=== PATIENT | female | born 1980 | race Caucasian/White ===

== ENCOUNTER 2016-10-20 09:23 | Observation (INO) | payer OTHER ==
[~2016-10-20] VITALS: Ht 170.2 cm; Wt 60.8 kg
[2016-10-20 11:47] LABS: HEMOGLOBIN 15.1 gm/dl (12.3-15.3); RED BLOOD COUNT 4.53 M/UL (4.00-5.10); WHITE BLOOD COUNT 10.2 K/UL (4.5-11.0)
[2016-10-20 12:17] LABS: BUN/CREATININE RATIO 29 (0-10)
[2016-10-20] MEDS ORDERED: ROBAXIN 750 MG750 MG PO (19:38)
[2016-10-20] MEDS ORDERED: ALLER-FEX180 MG PO (19:40)
[2016-10-20] MEDS ORDERED: BUSPAR 10MG10 MG PO (19:41)
[2016-10-20] MEDS ORDERED: LOSARTAN-HCTZ1 EAC1 PO (19:48)
[2016-10-21 07:30] LABS: HEMOGLOBIN 14.1 gm/dl (12.3-15.3); RED BLOOD COUNT 4.31 M/UL (4.00-5.10)
[2016-10-21 07:35] LABS: WHITE BLOOD COUNT 6.3 K/UL (4.5-11.0)
[2016-10-21 07:52] LABS: BUN/CREATININE RATIO 30 (0-10)
[2016-10-21] MEDS ORDERED: XANAX0.25 MG PO (11:50)
== END 2016-10-21 10:57 | disposition home or self-care (01) ==
LOC: ER1 09:23 → MED SURG 4 16:00 → ZEROF 16:00 → MED SURG 4 16:00
PROVIDERS: Emergency Medicine; ADMIT Internal Medicine
DX: I47.9 Paroxysmal tachycardia, unspecified (principal); I10 Essential (primary) hypertension; R42 Dizziness and giddiness; F41.9 Anxiety disorder, unspecified; Z86.79 Personal history of other diseases of the circulatory system; Z79.899 Other long term (current) drug therapy; Z98.84 Bariatric surgery status; Z88.8 Allergy status to other drugs, medicaments and biological substances
CPT/HCPCS: ECHO; 36415; 70450; 71010; 80048; 80053; 80307; 81001; 82550; 82553; 83605; 83874; 83880; 84439; 84443; 84484; 84703; 85025; 85379; 86140; 87040; 93005; 93270; 93306; 94664; 96360; 96361; 99285; G0378; J1650; J7030

== ENCOUNTER 2016-10-21 21:21 | Emergency (ER) | payer OTHER ==
[~2016-10-21 21:21] MED LIST: ALLER-FEX180 MG PO; BUSPAR 10MG10 MG PO; LOSARTAN-HCTZ1 EAC1 PO; ROBAXIN 750 MG750 MG PO; XANAX0.25 MG PO
== END 2016-10-22 05:06 | disposition home or self-care (01) ==
LOC: ER1 21:21
DX: F41.0 Panic disorder [episodic paroxysmal anxiety] (principal); Z88.8 Allergy status to other drugs, medicaments and biological substances
CPT/HCPCS: 93005; 99283